=== PATIENT | female | born 1960 | race Caucasian/White ===

== ENCOUNTER 2020-12-31 11:33 | Emergency (ER) | payer MEDICARE, OTHER ==
[~2020-12-31] VITALS: Ht 182.9 cm; Wt 72.6 kg
[~2020-12-31 11:33] MED LIST: ABILIFY10 MG PO; CELEXA40 MG PO; LEVOTHROID137 MCG PO; LEVOTHROID150 MCG PO; MAXZIDE 37.5 MG-1 EA PO; MEDROL4 MG PO; METHOTREXATE2.5 MG PO; MORPHINE SULFAT15 M1 PO; ORAMORPH SR30 MG PO; PLAQUENIL200 MG PO; ROXICODONE15 MG PO; TIZANIDINE HCL4 M1 PO; XANAX1 MG PO
--- OUTSIDE RECORDS SUMMARY | 2020-12-31 11:36 | XMS ---
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 Santy has no Care Guidelines for this patient. Cedrick VISIT COUNT (12 MO.) 1 JANNETTE Robbins TOTAL 1 NOTE: Visits indicate total known visits. ED/C VISIT TRACKING (12 MO.) 12/31/2020 11:35 JANNETTE Martinez [place] TYPE: Emergency COMPLAINT: - WEAK INPATIENT VISIT TRACKING (12 MO.) No inpatient visits to display in this time frame [email or web address]
[2020-12-31] MEDS ORDERED: BACTRIM DS TAB1 EACH PO (18:38)
== END 2020-12-31 19:17 | disposition home or self-care (01) ==
LOC: ED 11:33
DX: N39.0 Urinary tract infection, site not specified (principal); F15.90 Other stimulant use, unspecified, uncomplicated; F17.200 Nicotine dependence, unspecified, uncomplicated; Z79.899 Other long term (current) drug therapy; Z79.891 Long term (current) use of opiate analgesic
CPT/HCPCS: 36415; 71045; 73560; 80053; 81001; 83605; 84550; 85025; 86140; 87040; 87077; 87088; 87186; 96374; 99283-25; J0696

== ENCOUNTER 2023-05-14 22:16 | Emergency (ER) | payer MEDICARE, OTHER ==
[~2023-05-14] VITALS: Ht 190.5 cm; Wt 75.8 kg
[~2023-05-14 22:16] MED LIST changes: +BACTRIM DS TAB1 EACH PO
--- OUTSIDE RECORDS SUMMARY | 2023-05-14 22:22 | XMS ---
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 Care History Medical/Surgical 01/03/2021 [facility] - [facility] CALLED PATIENT- NO ANSWER- - PATIENT WOULD BENEFIT FROM A[facility] SERVICES- IF PATIENT IS SEEN IN THE ED- PLEASE ASK IF PATIENT WOULD LIKE [facility] SERVICES REFERRAL AND OR DIRECT CONTACT FROM ED. E.D. VISIT COUNT (12 MO.) 1 JANNETTE Robbins 1 Ronal PalmaMilady ([facility]) 1 [facility] Clara[facility]en ([place]) TOTAL 3 NOTE: Visits indicate total known visits. ED/UCC VISIT TRACKING (12 MO.) 05/14/2023 22:17 JANNETTE Martinez [place] TYPE: Emergency COMPLAINT: - WE[facility]NESS [facility] DIAGNOSES: - Cellulitis of right lower limb - Chronic pain syndrome - Leg Pain (Non-traumatic) - Leg Swelling - R/O DVT leg - Wound Infection (Uncomplicated) 03/16/2023 20:13 Ronal TAYLOR ([facility]) TYPE: Emergency DIAGNOSES: - Anemia, unspecified - Generalized abdominal pain - Hypothyroidism, unspecified - Weakness - Weakness INPATIENT VISIT TRACKING (12 MO.) No inpatient visits to display in this time frame [id number]
[2023-05-14 23:04] LABS: BASOPHILS 1.9 % (0-2); EOSINOPHILS 5.6 % (0-6); HEMATOCRIT 25.7 % (35.0-50.0); HEMOGLOBIN 8.7 g/dL (12.0-18.0); LYMPHOCYTES 21.7 % (24-44); MCH 28.8 (27-36); MCHC 33.8 g/dl (30-36); MCV 85.2 fl (81-99); MONOCYTES 6.1 % (0-12); NEUTROPHILS 64.7 % (39-80); PLATELET COUNT 477 K/uL (140-440); RBC 3.02 M/ul (4.3-5.7)
[2023-05-14 23:27] LABS: ALBUMIN/GLOBULIN RATIO 0.68 (1.1-2.4); ANION GAP 13.4 (7-21); BILIRUBIN, TOTAL 0.2 ng/dL (0.2-1.0); BUN/CREATININE RATIO 14.77 (6.0-28.6); CALCIUM 8.9 mg/dL (8.5-10.1); CREATININE, SERUM 0.88 mg/dL (0.55-1.02); MAGNESIUM 1.6 mg/dL (1.8-2.4); POTASSIUM 3.4 mmol/L (3.5-5.1); PROTEIN, TOTAL 7.4 g/dL (6.4-8.2)
[2023-05-15 01:03] LABS: BILIRUBIN, URINE NEGATIVE (negative); BLOOD/HGB, URINE NEGATIVE (Negative); KETONE, URINE NEGATIVE (Negative); LEUK ESTERASE, URINE NEGATIVE (negative); NITRITE, URINE NEGATIVE (negative); PH, URINE 6.5 (5-7)
[2023-05-15 01:17] LABS: INFLUENZA B NAA NEGATIVE (NEGATIVE); RESPIRATORY SYNCYTIAL VIR NAA NEGATIVE (NEGATIVE)
[2023-05-15 01:22] LABS: AMPHETAMINES, URINE POSITIVE (NEGATIVE); BARBITURATES, URINE NEGATIVE (NEGATIVE); BENZODIAZEPINE, URINE POSITIVE (NEGATIVE); BUPRENORPHINE, URINE NEGATIVE (NEGATIVE); CANNABINOID, URINE NEGATIVE (NEGATIVE); COCAINE, URINE NEGATIVE (NEGATIVE); ECSTASY, URINE NEGATIVE (NEGATIVE); FENTANYL, URINE NEGATIVE (NEGATIVE); METHADONE, URINE NEGATIVE (NEGATIVE); OPIATES, URINE NEGATIVE (NEGATIVE); OXYCODONE, URINE NEGATIVE (NEGATIVE); PHENCYCLIDINE, URINE NEGATIVE (NEGATIVE)
[2023-05-15 01:58] VITALS: BP 136/74
--- NOTE | 2023-05-15 22:33 | EKG ---
[facility] [address] [place] [address] Signed Sinus rhythm with premature atrial complexes Nonspecific ST and T wave abnormality Abnormal ECG No previous ECGs available Confirmed by Conchita Mitchell MD () on 05/15/2023 10:33:35 PM Electronically Signed By: CONCHITA MITCHELL MD 05/15/232232 PATIENT NAME: RACHEL LUJAN Electrocardiogram DATE OF : 64 PHYSICIAN: CONCHITA MITCHELL MD REPORT #: [id number] REPORT IS CONFIDENTIAL AND NOT TO BE RELEASED WITHOUT AUTHORIZATION
[2023-05-16 16:50] LABS: TRIIODOTHYRONINE,FREE FREE T3 2.6 pg/mL (2.5-4.3)
== END 2023-05-15 02:00 | disposition home or self-care (01) ==
LOC: ED 22:16
PROVIDERS: Emergency Medicine
DX: R53.1 Weakness (principal); G89.29 Other chronic pain; M06.9 Rheumatoid arthritis, unspecified; F17.200 Nicotine dependence, unspecified, uncomplicated; Z20.822 Contact with and (suspected) exposure to COVID-19; Z88.2 Allergy status to sulfonamides; Z88.8 Allergy status to other drugs, medicaments and biological substances; Z79.890 Hormone replacement therapy; Z79.899 Other long term (current) drug therapy; Z79.52 Long term (current) use of systemic steroids
CPT/HCPCS: 36415; 70450; 71045; 80053; 80307; 81003; 83735; 84443; 84481; 84484; 85025; 87502; 93005; 93010; 99285-25; A9270; U0002